=== PATIENT | male | born 1985 | race African-American/Black ===

== ENCOUNTER 2017-05-22 07:01 | Emergency (ER) | payer OTHER ==
[~2017-05-22 07:01] MED LIST: BACT800T5 PO; CEPH500C3 PO; FOLI1 PO
[2017-05-22 07:03] VITALS: BP 169/80; PULSE 98; RESP 14; TEMP 98.3; O2SAT 99
--- NOTE | 2017-05-22 07:16 | PD ---
HPI Chief Complaint: Pain: Acute or Chronic Time Seen by Provider: 07:15 Travel History International Travel<30 days: No Contact w/Intl Traveler<30days: No Traveled to known affect area: No History of Present Illness HPI 31-year-old male came to the emergency room with history of dehydration, chills followed by diaphoresis and unable to urinate since last night. Patient thinks is having rhabdomyolysis since he had similar symptoms in the past and it was diagnosed with rhabdomyolysis. No history of pain. No history of trauma. He works at [employer] and was out in the heat quite a bit yesterday. He appears to be anxious. Patient says he had diarrhea 2 days ago. No vomiting or diarrhea currently. Vital signs were stable. Patient has history of alpha thalassemia. Patient said he has been unable to urinate since 9 PM last night. He has been getting some urges to urinate. But unable to make it be repaired. No history of dysuria. PFSH Past Medical History Narrative Medical List of his past medical, surgical, social and family history is reviewed from the nursing note. Anemia: Yes (ALPHA THALASEMIA) Blood Disorders: No Anxiety: Yes Depression: Yes Cardiovascular Problems: Yes Diminished Hearing: No Endocrine: No Gastrointestinal Disorders: No Genitourinary: No Immune Disorder: No Implanted Vascular Access Dvce: No Musculoskeletal: No Neurologic: Yes (sroke in 2013) Psychiatric: Yes Reproductive: No Respiratory: Yes Immunizations Current: Yes Sleep Apnea: Yes Past Surgical History Oral Surgery: Yes Other Surgery: Yes (oral ) Social History Alcohol Use: No Tobacco Use: No Substance Use: Yes Allergies-Medications (Allergen,Severity, Reaction): Coded Allergies: No Known Allergies (Verified , 05/31/16) Comments No known drug allergies. Reported Meds & Prescriptions Reported Meds & Active Scripts Active Reported Hydroxychloroquine (Hydroxychloroquine Sulfate) 200 Mg Tab 200 Mg PO BID Takw with food Folic Acid 1 Mg Tablet Narrative Medication List of his home medications reviewed from the nursing note. Review of Systems Except as stated in HPI: all other systems reviewed are Neg Physical Exam Narrative GENERAL: Awake, alert, anxious, moderate distress SKIN: Focused skin assessment warm/dry. Diaphoresis HEAD: Atraumatic. Normocephalic. EYES: Pupils equal and round. No scleral icterus. No injection or drainage. ENT: No nasal bleeding or discharge. Dry mucous membrane, coated tongue NECK: Trachea midline. No JVD. CARDIOVASCULAR: Regular rate and rhythm. No murmur appreciated. RESPIRATORY: No accessory muscle use. Clear to auscultation. Breath sounds equal bilaterally. GASTROINTESTINAL: Abdomen soft, non-tender, nondistended. Hepatic and splenic margins not palpable. MUSCULOSKELETAL: No obvious deformities. No clubbing. No cyanosis. No edema. NEUROLOGICAL: Awake and alert. No obvious cranial nerve deficits. Motor grossly within normal limits. Normal speech. PSYCHIATRIC: Appropriate mood and affect; insight and judgment normal. Data Data Last Documented VS Vital Signs Date Time Temp Pulse Resp B/P Pulse Ox O2 Delivery O2 Flow Rate FiO2 05/22/17 07:46 99 05/22/17 07:03 98.3 98 14 169/80 Orders Complete Blood Count With Diff (05/22/17 07:28) Comprehensive Metabolic Panel (05/22/17 07:28) Lactic Acid Sepsis Protocol (05/22/17 07:28) Urinalysis - C+S If Indicated (05/22/17 07:28) Blood Culture (05/22/17 07:28) Chest, Single Ap (05/22/17 07:28) Blood Glucose (05/22/17 07:28) Ecg Monitoring (05/22/17 07:28) Iv Access Insert/Monitor (05/22/17 07:28) Oximetry (05/22/17 07:28) Oxygen Administration (05/22/17 07:28) Sodium Chlor 0.9% 1000 Ml Inj (Ns 1000 M (05/22/17 07:28) Sodium Chlor 0.9% 1000 Ml Inj (Ns 1000 M (05/22/17 07:28) Sodium Chlor 0.9% 1000 Ml Inj (Ns 1000 M (05/22/17 07:28) Creatine Kinase (Cpk) (05/22/17 07:28) Type And Screen (05/22/17 07:28) Prothrombin Time / Inr (Pt) (05/22/17 07:28) CKMB (05/22/17 07:35) CKMB% (05/22/17 07:35) Drug Screen, Random Urine (05/22/17 08:27) Labs Laboratory Tests Test 05/22/17 05/22/17 05/22/17 07:30 07:35 08:45 Lactic Acid Level 1.9 mmol/L White Blood Count 7.1 TH/MM3 Red Blood Count 7.03 MIL/MM3 Hemoglobin 16.2 GM/DL Hematocrit 48.5 % Mean Corpuscular Volume 68.9 FL Mean Corpuscular Hemoglobin 23.0 PG Mean Corpuscular Hemoglobin 33.4 % Concent Red Cell Distribution Width 14.5 % Platelet Count 337 TH/MM3 Mean Platelet Volume 8.5 FL Neutrophils (%) (Auto) 54.1 % Lymphocytes (%) (Auto) 32.4 % Monocytes (%) (Auto) 11.3 % Eosinophils (%) (Auto) 1.9 % Basophils (%) (Auto) 0.3 % Neutrophils # (Auto) 3.9 TH/MM3 Lymphocytes # (Auto) 2.3 TH/MM3 Monocytes # (Auto) 0.8 TH/MM3 Eosinophils # (Auto) 0.1 TH/MM3 Basophils # (Auto) 0.0 TH/MM3 CBC Comment DIFF FINAL Differential Comment Prothrombin Time 12.1 SEC Prothromb Time International 1.1 RATIO Ratio Sodium Level 138 MEQ/L Potassium Level 3.2 MEQ/L Chloride Level 104 MEQ/L Carbon Dioxide Level 25.3 MEQ/L Anion Gap 9 MEQ/L Blood Urea Nitrogen 12 MG/DL Creatinine 1.26 MG/DL Estimat Glomerular Filtration 81 ML/MIN Rate Random Glucose 98 MG/DL Calcium Level 9.8 MG/DL Total Bilirubin 0.9 MG/DL Aspartate Amino Transf 21 U/L (AST/SGOT) Alanine Aminotransferase 28 U/L (ALT/SGPT) Alkaline Phosphatase 70 U/L Total Creatine Kinase 589 U/L Creatine Kinase MB 1.7 NG/ML Creatine Kinase MB % 0.3 % Total Protein 9.1 GM/DL Albumin 4.7 GM/DL Blood Type O POSITIVE Antibody Screen NEGATIVE Blood Bank Comment Urine Color YELLOW Urine Turbidity CLEAR Urine pH 6.5 Urine Specific [place] 1.027 Urine Protein TRACE mg/dL Urine Glucose (UA) NEG mg/dL Urine Ketones NEG mg/dL Urine Occult Blood NEG Urine Nitrite NEG Urine Bilirubin NEG Urine Urobilinogen 2.0 MG/DL Urine Leukocyte Esterase NEG Urine RBC LESS THAN 1 /hpf Urine WBC LESS THAN 1 /hpf Urine Hyaline Casts 1 /lpf Urine Mucus FEW /lpf Microscopic Urinalysis Comment CATH-CULT NOT IND Urine Opiates Screen NEG Urine Barbiturates Screen NEG Urine Amphetamines Screen NEG Urine Benzodiazepines Screen NEG Urine Cocaine Screen NEG Urine Cannabinoids Screen POS MDM Medical Decision Making Medical Screen Exam Complete: Yes Emergency Medical Condition: Yes Medical Record Reviewed: Yes Differential Diagnosis Rhabdomyolysis, dehydration, electrolyte abnormality Narrative Course 8:25 AM blood test results of back and within acceptable limits. CPK is mildly elevated. Patient is getting IV fluid 3 L. I had done a bedside ultrasound to look for the bladder and the bladder was fully collapsed. Once patient is hydrated here and will be collected. 9:12 AM UA is within normal limits. I'll discharge him home. Procedures Procedure Narrative Bladder ultrasound: I performed a bedside bladder ultrasound that showed collapsed bladder. The reason that was done was to determine whether patient was having urinary obstruction or empty bladder since he said he had not urinated since 9 PM last night. EKG Prior to Arrival: No Diagnosis Primary Impression: Dehydration Referrals: Primary Care Physician Additional Instructions: Drink lots of fluid. Try to stay hydrated. Return to the ER if the condition worsens or any other new concerns. Otherwise follow-up with your primary care in couple days. Med/Other Pt SpecificInfo: No Change to Meds Disposition: 01 DISCHARGE HOME Condition: Stable Agnes Link MD May 22, 2017 07:16
[2017-05-22] MEDS ORDERED: FOLI1TAB6 (07:20)
[2017-05-22] MEDS ORDERED: HYDR200T3 PO (07:20)
[2017-05-22] MEDS ORDERED: SODIUM CHLOR 0.9% 1000 ML INJ 1,000 ML IV ONE ×2 (07:28)
[2017-05-22] MEDS ORDERED: SODIUM CHLOR 0.9% 1000 ML INJ 700 ML IV ONE (07:28)
[2017-05-22 07:46] VITALS: O2SAT 99
[2017-05-22 07:49] LABS: AUTOMATED NEUTROPHIL # 3.9 TH/MM3 (1.8-7.7); BASOPHIL % 0.3 % (0.0-2.0); EOSINOPHIL # 0.1 TH/MM3 (0-0.4); EOSINOPHIL % 1.9 % (0.0-4.0); HEMATOCRIT 48.5 % (39.0-51.0); HEMO FLAGS DIFF FINAL; LYMPH % 32.4 % (9.0-44.0); LYMPHOCYTE # 2.3 TH/MM3 (1.0-4.8); MEAN CELL VOLUME 68.9 FL (80.0-100.0); MEAN CORPUSCULAR HGB CONC 33.4 % (32.0-36.0); MONO % 11.3 % (0.0-8.0); NEUT % 54.1 % (16.0-70.0); PLATELET COUNT 337 TH/MM3 (150-450); RED BLOOD COUNT 7.03 MIL/MM3 (4.50-5.90); RED CELL DISTRIBUTION WIDTH 14.5 % (11.6-17.2); WHITE BLOOD COUNT 7.1 TH/MM3 (4.0-11.0)
[2017-05-22 07:59] LABS: INTERNATIONAL NORMALIZED RATIO 1.1 RATIO; PROTHROMBIN TIME - PATIENT 12.1 SEC (9.8-11.6)
--- NOTE | 2017-05-22 07:59 | RADRPT ---
EXAM DATE/TIME: 05/22/2017 07:43 [facility] COMPARISON: CHEST SINGLE AP, December 03, 2015, 14:00. INDICATIONS : Nausea, weakness,short of breath, shakes, congestion. MEDICAL HISTORY : Stroke. SURGICAL HISTORY : None. ENCOUNTER: Initial ACUITY: 1 day PAIN SCORE: 0/10 LOCATION: Bilateral chest FINDINGS: A single view of the chest demonstrates the lungs to be symmetrically aerated without evidence of mas s, infiltrate or effusion. The cardiomediastinal contours are unremarkable. Osseous structures are intact. CONCLUSION: 1. No acute cardiopulmonary findings. Troy Grewal MD on May 22, 2017 at 7:57 Board Certified Radiologist. This report was verified electronically.
[2017-05-22 08:03] LABS: ANION GAP 9 MEQ/L (5-15); AST (GOT) 21 U/L (15-37); BICARBONATE 25.3 MEQ/L (21.0-32.0); BLOOD UREA NITROGEN 12 MG/DL (7-18); CHLORIDE 104 MEQ/L (98-107); GLOMERULAR FILTRATION RATE 81 ML/MIN (>89); POTASSIUM 3.2 MEQ/L (3.5-5.1); SODIUM (NA) 138 MEQ/L (136-145)
[2017-05-22 08:04] LABS: ALT (GPT) 28 U/L (12-78)
[2017-05-22 08:07] LABS: ALKALINE PHOSPHATASE 70 U/L (45-117); CREATINE KINASE 589 U/L (39-308); TOTAL BILIRUBIN ADULT 0.9 MG/DL (0.2-1.0)
[2017-05-22 08:22] LABS: CKMB 1.7 NG/ML (0.5-3.6)
[2017-05-22 09:05] LABS: BLOOD, URINE NEG (NEG); GLUCOSE,URINE NEG (NEG); HYALINE CAST, URINE 1 /lpf (RARE); KETONE, URINE NEG (NEG); MUCUS URINE FEW /lpf (OCC); NITRITE,URINE NEG (NEG); PH, URINE 6.5 (5.0-8.5); URINE COLOR YELLOW (YELLW/STRAW)
[2017-05-22 09:07] LABS: COMMENT (UR) CATH-CULT NOT IND; CULTURE IF INDICATED CATH CULTURE NOT IND
[2017-05-22 09:19] LABS: AMPHETAMINE, URINE NEG (NEG); BARBITURATES, URINE NEG (NEG); COCAINE, URINE NEG (NEG)
== END 2017-05-22 09:23 | disposition home or self-care (01) ==
LOC: NEPE 07:01
DX: E86.0 Dehydration (principal); R68.83 Chills (without fever); R61 Generalized hyperhidrosis; R34 Anuria and oliguria; G47.30 Sleep apnea, unspecified; Z79.899 Other long term (current) drug therapy; Z87.39 Personal history of other diseases of the musculoskeletal system and connective tissue; Z86.2 Personal history of diseases of the blood and blood-forming organs and certain disorders involving the immune mechanism; Z86.59 Personal history of other mental and behavioral disorders; Z86.79 Personal history of other diseases of the circulatory system; Z86.69 Personal history of other diseases of the nervous system and sense organs; Z87.09 Personal history of other diseases of the respiratory system
CPT/HCPCS: 71010; 80053; 80307; 81001; 82550; 82552; 83605; 85025; 85610; 86850; 86900; 86901; 87040; 96360; 99285; J7030

== ENCOUNTER 2017-08-26 19:15 | Emergency (ER) | payer OTHER ==
[~2017-08-26] VITALS: Ht 180.3 cm; Wt 94.0 kg
[~2017-08-26 19:15] MED LIST changes: -BACT800T5 PO; -CEPH500C3 PO; -FOLI1 PO; +FOLI1TAB6; +HYDR200T3 PO
[2017-08-26 19:28] VITALS: BP 126/66; PULSE 76; RESP 16; TEMP 97.7; O2SAT 97
[2017-08-26] MEDS ORDERED: MELO7.5T4 PO (20:56)
[2017-08-26] MEDS ORDERED: REME15TA PO (20:56)
[2017-08-26] MEDS ORDERED: OMEP20TA PO (20:56)
--- NOTE | 2017-08-26 20:56 | PD ---
HPI Chief Complaint: Musculoskeletal Complaint Time Seen by Provider: 20:44 Travel History International Travel<30 days: No Contact w/Intl Traveler<30days: No History of Present Illness HPI Patient comes in complaining of left hip pain ongoing for 5 days. Patient describes pain as a throbbing/aching pain that radiates into his back and down his leg. Patient denies anything like this in the past. Denies any trauma with this. Patient reports been taking his meloxicam without improvement of symptoms. Denies anything making symptoms better or worse. Denies any fevers, loss change in bowel or bladder, abdominal pain, numbness or tingling anywhere, chest pain, shortness of breath, or edema. PFSH Past Medical History Anemia: Yes (ALPHA THALASEMIA) Blood Disorders: No Anxiety: Yes Depression: Yes Cardiovascular Problems: Yes Diminished Hearing: No Endocrine: No Gastrointestinal Disorders: No Genitourinary: No Immune Disorder: No Implanted Vascular Access Dvce: No Musculoskeletal: No Neurologic: Yes (sroke in 2012) Psychiatric: Yes Reproductive: No Respiratory: Yes Immunizations Current: Yes Sleep Apnea: Yes Past Surgical History Oral Surgery: Yes Other Surgery: Yes (oral ) Social History Alcohol Use: No Tobacco Use: No Substance Use: Yes Allergies-Medications (Allergen,Severity, Reaction): Coded Allergies: shellfish derived (Verified Allergy, Severe, Nausea/Vomiting, 08/26/17) Reported Meds & Prescriptions Reported Meds & Active Scripts Active Prednisone (21) 10 mg tab Dose Pack (Prednisone) 10 Mg Pack 10 Mg PO DIRECTED Start 08/27/17 Reported Omeprazole 20 Mg Tab Unknown Dose PO DAILY Remeron (Mirtazapine) 15 Mg Tab Unknown Dose PO HS Meloxicam 7.5 Mg Tab Unknown Dose PO DAILY PRN Hydroxychloroquine (Hydroxychloroquine Sulfate) 200 Mg Tab 200 Mg PO BID Takw with food Folic Acid 1 Mg Tablet Review of Systems Except as stated in HPI: all other systems reviewed are Neg Physical Exam Narrative GENERAL: Well-developed, well nourished, in no acute distress, and non-ill appearing. SKIN: Focused skin assessment warm and dry. HEAD: Atraumatic. Normocephalic. EYES: Pupils equal and round. EOMI. No scleral icterus. No injection or drainage. ENT: No nasal bleeding or discharge. Mucous membranes pink and moist. NECK: Trachea midline. Supple. No nuclear rigidity. CARDIOVASCULAR: Dorsal pulses 2+, intact, and equal bilaterally. Capillary refill less than 2 seconds. RESPIRATORY: No accessory muscle use. No respiratory distress. GASTROINTESTINAL: Abdomen soft, non-tender, nondistended, and no guarding. Hepatic and splenic margins not palpable. No pulsatile mass. MUSCULOSKELETAL: No obvious deformities. No clubbing. No cyanosis. No edema. Full range of motion. Hip: FROM and equal BL with passive flexion, extension, Abduction, Adduction, and internal/external rotation. Pulses equal BL distal to injury. Capillary refill less than 2 seconds distal to injury and equal BL. FROM distal to injury and equal BL. Strength distal to injury equal BL. NV intact distal to injury and equal BL. Plantar flexion and dorsal flexion equal BL. Dorsal pulses equal BL. Sensation equal BL 1st web space. Patient reports pain to palpation near left SI joint. NEUROLOGICAL: Awake and alert. No obvious cranial nerve deficits. Motor grossly within normal limits. Normal speech. PSYCHIATRIC: Appropriate mood and affect; insight and judgment normal. Data Data Last Documented VS Vital Signs Date Time Temp Pulse Resp B/P (MAP) Pulse Ox O2 Delivery O2 Flow Rate FiO2 08/26/17 21:49 08/26/17 19:28 97.7 76 16 97 Orders Orders Hip, Uni(Ap&Lat) W Ap Pelvis (08/26/17 ) Dexamethasone Inj (Decadron Inj) (08/26/17 21:00) Ed Discharge Order (08/26/17 21:45) [facility] Medical Decision Making Medical Screen Exam Complete: Yes Emergency Medical Condition: Yes Interpretation(s) Last Impressions Hip and Pelvis X-Ray 08/26/17 0000 Signed Impressions: Service Date/Time: Saturday, August 26, 2017 21:10 - CONCLUSION: Unremarkable study. Andrea Gonzalez MD Differential Diagnosis Avascular necrosis, sciatica, fracture, musculoskeletal pain, other Narrative Course The patient presented complaining of left hip pain radiating into back pain and down his leg. There was no history of recent fall or trauma. There was no evidence to support genitourinary etiology. There is also no evidence to suggest vascular pathology such as AAA dissection. No fevers or other evidence to suspect infectious processes, abscess, osteomyelitis etc. Radiological exam showed no acute findings. The patients neurological exam is normal with normal motor and sensory. There is no saddle paresthesias reported and no bowel or bladder incontinence or retention. I suspect the pain is mechanical in nature with sciatica. Clinical suspicion, plan of care and management was discussed with the patient. The patient was instructed to follow up with their health care provider. The patient was also instructed to return if the pain worsened, changed, or developed weakness or bowel or bladder trouble. The patient agreed with plan. Patient in no obvious distress upon re-evaluation. All pertinent Radiology result(s) discussed with patient. Patient was asked if they wanted to speak to my attending, which the patient did not wish to do at this time. Any questions/ concerns in reference to patient diagnosis/condition discussed and clarified prior to patient's discharge. Reinforced sheer importance of close follow up with patient's primary physician or primary care clinic. Instructed patient to return to ED immediately, if symptoms return/worsen. Patient showed understanding of above instructions. Further instructions and recommendations were detailed in discharge paperwork. Patient ambulated without difficulty out of ED at discharge. Diagnosis Primary Impression: Sciatica of left side Patient Instructions: General Instructions, Sciatica (ED) Additional Instructions: Follow-up with your primary care physician this week for evaluation and possible orthopedic referral. Take all medication as prescribed. Do not take your meloxicam with taking the steroids prescribed today. Return to the emergency department if symptoms get worse. Med/Other Pt SpecificInfo: Prescription(s) given Scripts Prednisone (21) 10 mg tab Dose Pack (Prednisone (21) 10 mg tab Dose Pack) 10 Mg Pack 10 MG PO DIRECTED for Inflammation, #1 DSPK 0 Refills Start 08/27/17 Prov: Bandar Jarrett MD 08/26/17 Disposition: 01 DISCHARGE HOME Condition: Stable Hayden Culver Aug 26, 2017 20:56
[2017-08-26] MEDS ORDERED: DEXAMETHASONE SOD PHOS 20 MG/5 ML VIAL IM ONE (21:00)
--- NOTE | 2017-08-26 21:42 | RADRPT ---
EXAM DATE/TIME: 08/26/2017 21:10 [facility] COMPARISON: No previous studies available for comparison. INDICATIONS : Left hip pain for a few days. No known injury. MEDICAL HISTORY : Stroke. Alpha Thalasemia. Rheumatoid arthritis. SURGICAL HISTORY : None. ENCOUNTER: Initial ACUITY: 3 days PAIN SCORE: 8/10 LOCATION: Left hip. FINDINGS: No definite fractures, or dislocations are identified. No definite lytic or sclerotic lesion is seen . The joint space is well maintained. CONCLUSION: Unremarkable study. Andrea Gonzalez MD on August 26, 2017 at 21:38 Board Certified Radiologist. This report was verified electronically.
[2017-08-26] MEDS ORDERED: PRED10PA PO (21:47)
== END 2017-08-26 21:56 | disposition home or self-care (01) ==
LOC: PHED 19:15 → PHEFT 21:56
DX: M54.32 Sciatica, left side (principal); G47.30 Sleep apnea, unspecified; Z86.2 Personal history of diseases of the blood and blood-forming organs and certain disorders involving the immune mechanism; Z86.59 Personal history of other mental and behavioral disorders; Z86.79 Personal history of other diseases of the circulatory system; Z86.69 Personal history of other diseases of the nervous system and sense organs
CPT/HCPCS: 73502; 96372; 99284; J1100